=== PATIENT | female | born 1950 | race Caucasian/White ===

== ENCOUNTER 2016-08-28 06:53 | Day surgery (SDC) | payer MEDICARE ==
[2016-08-27 08:58] VITALS: BMI 26.2
[~2016-08-28 06:53] MED LIST: LACTATED RINGERS 1,000 ML IV SCH
[2016-08-28] MEDS ORDERED: LACTATED RINGERS 1,000 ML IV ONE (07:11)
[2016-08-28 07:18] VITALS: TEMP 97.1
[2016-08-28] MEDS ORDERED: ONDANSETRON 4 MG/2 ML VIAL ONE (07:46)
[2016-08-28] MEDS ORDERED: GLYCOPYRROLATE 0.2 MG/ML 2 ML VIAL ONE (07:46)
[2016-08-28] MEDS ORDERED: ATROPINE SULFATE 0.4 MG/ML 1 ML VIAL ONE (07:46)
[2016-08-28] MEDS ORDERED: LIDOCAINE 1% INJ 10MG/ML (20 ML MDV) ONE (07:46)
[2016-08-28] MEDS ORDERED: PROPOFOL 10 MG/ML 20 ML VIAL IV ONE (07:46)
--- NOTE | 2016-08-28 08:23 | P.OP ---
Date of Procedure: 08/28/16 Preoperative Diagnosis: Screening colonoscopy Hypertension Hypercholesterolemia Postoperative Diagnosis: Normal colonoscopy Procedure(s) Performed: Screening colonoscopy without biopsy Anesthesia: MAC Surgeon: Poppy Christensen Pathology: none sent Condition: stable Disposition: PACU Indications for Procedure: 65 years old female presents for screening colonoscopy. Last colonoscopy was 10 years ago. No change in bowel habits. No family history of colon cancer. Informed consent obtained and patient elected to undergo colonoscopy with possible biopsy Operative Findings: Normal colonoscopy Description of Procedure: The patient was brought to the endoscopy suite and placed in lateral decubitus position. IV sedation was given as per anesthesia team. Patient was on continuous vitals and pulse oximetry monitoring throughout the procedure. A timeout was performed to verify correct patient and correct procedure. Perianal examination showed mild circumferential rectal mucosal prolapse and external hemorrhoids. Digital rectal examination was performed. No masses or gross blood. A well-lubricated Olympus colonoscope was passed per rectally and was gradually advanced beyond the sigmoid colon, splenic flexure, transverse colon, hepatic flexure and cecum. The ileocecal valve was visualized as well as the appendiceal orifice . The colonoscope was gradually withdrawn inspecting all the mucosal surfaces. Bowel prep was good. No polyps, masses, AV malformations noted. No diverticulosis. The scope was gradually withdrawn and retroflexed in the rectum . Total withdrawal time was greater than 6 minutes . Patient tolerated the procedure well and was taken to post anesthesia care unit in stable condition. Recommend repeat colonoscopy in 10 years . Patient reported fall in the bathroom yesterday while taking the bowel prep. She denies any headache. Blood pressure and pulse rate stable. CBC and CMP will be checked. Communicated with Sara nurse practitioner at Dr. Nuñez office for follow-up appointment
[2016-08-28 08:29] VITALS: RESP 16
[2016-08-28 09:20] VITALS: BP 115/77; PULSE 73
[2016-08-28 09:24] LABS: Basophils % (A) 0 %; CH 29.9; CHCM 32.9; Eosinophils % (A) 0 %; HDW 2.95; HGB 11.8 gm/dL (11.4-16.0); Luc # (Auto) 0.09; Luc % (Auto) 2; Lymphocytes % (A) 17 %; MCH 30.2 pg (25.0-35.0); MCHC 32.9 g/dL (31.0-37.0); MCV 91.7 fL (80.0-100.0); Mean Platelet Volume 7.1; Monocytes # (A) 0.4 k/uL (0-1.0); Monocytes % (A) 7 %; Neutrophils % (A) 73 %; RBC 3.92 m/uL (3.80-5.40); RDW 14.1 % (11.5-15.5); WBC 5.5 k/uL (3.8-10.6)
[2016-08-28 09:47] LABS: ALT 28 U/L (9-52); AST 24 U/L (14-36); Alkaline Phosphatase 43 U/L (38-126); Anion Gap 10 mmol/L; Blood Urea Nitrogen 14 mg/dL (7-17); Calcium 9.4 mg/dL (8.4-10.2); Carbon Dioxide 27 mmol/L (22-30); Chloride 104 mmol/L (98-107); Glucose 108 mg/dL (74-99); Non-African American GFR(MDRD) >60 (>60 ml/min/1.73 sqM); Potassium 3.8 mmol/L (3.5-5.1); Sodium 141 mmol/L (137-145); Total Bilirubin 0.6 mg/dL (0.2-1.3)
== END 2016-08-28 10:39 | disposition home or self-care (01) ==
LOC: ORWHC2ENDO 06:53
PROVIDERS: ATTEND Surgery
DX: Z12.11 Encounter for screening for malignant neoplasm of colon (principal); I10 Essential (primary) hypertension; E78.00 Pure hypercholesterolemia, unspecified; E78.5 Hyperlipidemia, unspecified; Z79.899 Other long term (current) drug therapy
CPT/HCPCS: 80053; 85025; J0461; J2405; J2001; J2704; G0121

== ENCOUNTER → 2018-08-05 | Outpatient (CLI) | payer MEDICARE ==
--- NOTE | 2018-08-05 10:12 | CT ---
EXAMINATION TYPE: CT heart w calcium score DATE OF EXAM: 08/05/2018 COMPARISON: None HISTORY: Screening for cardiovascular disorder. 213.9 CT DLP: 44.8 mGycm Automated exposure control for dose reduction was used. CT CALCIUM SCORING Coronary calcium is a marker for plaque (fatty deposits) in a blood vessel or atherosclerosis (harden ing of the arteries). The presence and amount of calcium detected in a coronary artery by the CT sca n, indicates the presence and amount of atherosclerotic plaque. These calcium deposits appear years before the development of heart disease symptoms such as chest pain and shortness of breath. A calcium score is computed for each of the coronary arteries based upon the volume and density of th e calcium deposits. This can be referred to as your calcified plaque burden. It does not correspond directly to the percentage of narrowing in the artery but does correlate with the severity of the un derlying coronary atherosclerosis. PROCEDURE TECHNIQUE - Prospective Gating was used. Slice thickness: 3mm. Density threshold (HU): 130, Pixel threshold: 3, Algorithm: discrete. RESULTS Region: LM Calcium Score (Agatston): 0 Volume (mm3): 0 Mass (g): 0 Region: RCA Calcium Score (Agatston): 0 Volume (mm3): 0 Mass (g): 0 Region: LAD Calcium Score (Agatston): 0 Volume (mm3): 0 Mass (g): 0 Region: CX Calcium Score (Agatston): 0 Volume (mm3): 0 Mass (g): 0 Region: PDA Calcium Score (Agatston): 0 Volume (mm3): 0 Mass (g): 0 Total: Calcium Score (Agatston): 0 Volume (mm3): 0 Mass (g): 0 TOTAL CALCIUM SCORE: 0 OTHER: There is a small hiatal hernia seen. Mild degenerative changes of the spine are noted. The vis ualized portion of the lungs are unremarkable. No mediastinal adenopathy and the visualized mediastin um. Ascending thoracic aorta is within normal limits measuring 3.7 cm as is the main pulmonary artery . IMPRESSION: Calcium Score: 0 Implication: No identifiable plaque. Risk of Coronary Artery Disease: Very low, generally less than 5%.
== END | disposition home or self-care (01) ==
LOC: RADCTMAIN 08:42
PROVIDERS: ATTEND Family Medicine
DX: I10 Essential (primary) hypertension (principal); E78.00 Pure hypercholesterolemia, unspecified; Z13.6 Encounter for screening for cardiovascular disorders
CPT/HCPCS: 75571

== ENCOUNTER 2018-11-24 08:14 | Day surgery (SDC) | payer MEDICARE, BC ==
[2018-11-16 16:41] VITALS: BMI 26.5
[~2018-11-24 08:14] MED LIST changes: +LIDOCAINE 1% 20 ML VIAL (10MG/ML) FOR IV START INTRADERMA PRN; +MOXIFLOXACIN HCL 0.5% DROPS 3 ML BTL OP ONE; +TETRACAINE 0.5% OPHTH (PF) DROPS 4 ML BTL OP ONE; +TIMOLOL 0.5% OPHTH DROPS 5 ML BTL OP ONE
[2018-11-24 08:52] VITALS: TEMP 97
[2018-11-24] MEDS: CYCLOPENTOLATE 1% OPHTH SOLN 2 ML BTL OP ONE ×4 (08:53→09:11)
[2018-11-24] MEDS: PHENYLEPHRINE 2.5% OPHTH DRP 2ML OP NR ×3 (08:59→09:11)
[2018-11-24] MEDS ORDERED: LIDOCAINE 1% (PF) 10MG/ML VIAL MISCELLANE ONE (09:27)
[2018-11-24] MEDS ORDERED: BALANCED SALT IRRIG SOLN COMB2 15 ML IRRIG.SOLN IRRIGATION ONE (09:27)
[2018-11-24] MEDS ORDERED: HYALURONATE SODIUM INTRAOCULAR 1 EACH SYRINGE (12MG/ML) INTRAOCULA ONE (09:27)
[2018-11-24] MEDS ORDERED: EPINEPHrine (PF) 0.3 ML in BALANCED SALT IRRIG SOLN COMB2 500 ML IRRIGATION ONE (09:32)
[2018-11-24] MEDS ORDERED: MIDAZOLAM 2 MG/2 ML VIAL ONE (09:32)
[2018-11-24] MEDS ORDERED: fentaNYL (PF) 50 MCG/ML 2 ML AMP ONE (09:32)
--- NOTE | 2018-11-24 09:55 | P.OP ---
Date of Procedure: 11/24/18 Preoperative Diagnosis: NS & CS Postoperative Diagnosis: same Procedure(s) Performed: PIOL, OD Implants: PCB00 7.0 Anesthesia: MAC Surgeon: Calin Tena Pathology: none sent Condition: stable Disposition: same day Indications for Procedure: blurry vision Operative Findings: no complications
[2018-11-24 10:21] VITALS: BP 135/73; PULSE 49; RESP 16
--- NOTE | 2018-11-24 20:08 | OP ---
OPERATIVE REPORT DATE OF SURGERY: 11/24/2018. PROCEDURE: Phacoemulsification of cataract and intraocular lens implant of the right eye. PREOPERATIVE DIAGNOSES: 1. Nuclear sclerosis, right eye. 2. Cortical sclerosis, right eye. POSTOPERATIVE DIAGNOSES: 1. Nuclear sclerosis, right eye. 2. Cortical sclerosis, right eye. NARRATIVE: After obtaining the appropriate consent, the patient was brought to the operating room, where the patient was placed under cardiac monitoring and prepped and draped in the usual sterile manner. At the 11 o'clock position a 15-degree super sharp blade was used to create a paracentesis followed by instillation of 1% Xylocaine MPF 50:50 mix with BSS into the anterior chamber. This was followed by Amvisc to stabilize the anterior chamber. At the 9 o'clock position a self-sealing corneal flap incision was created using 2.8 mm laisha keratome. A cystotome was used to initiate a continuous tear capsulorrhexis which was completed with the Utrata forceps. A Binkhorst cannula was used to hydrodissect the lens nucleus followed by hydrodelineation. Phacoemulsification of the lens was performed utilizing Phaco Chop in 12.10 seconds at 10% power. The remaining cortical material was removed using the irrigation aspiration mode followed by additional 1% Xylocaine MPF into the anterior chamber followed by viscoelastic to stabilize the capsular bag. A Jonathon and Jonathon PCB00 7.0 diopter posterior chamber lens was placed into the capsular bag without difficulty. The remaining viscoelastic material was removed from the anterior chamber with the irrigation/aspiration. Balanced salt solution was used to normalize the intraocular pressure. The incision was checked for watertight integrity. The patient then received two drops of 0.5% timolol followed by two drops Vigamox, was lightly patched and shielded in the usual manner. There were no complications from the procedure. The patient tolerated the procedure well and was returned to Recovery in good condition. MMODL / IJN: [id number] /
== END 2018-11-24 10:38 | disposition home or self-care (01) ==
LOC: OR 08:14
PROVIDERS: ATTEND Ophthalmology
DX: H25.11 Age-related nuclear cataract, right eye (principal); I10 Essential (primary) hypertension; Z79.899 Other long term (current) drug therapy; H18.453 Nodular corneal degeneration, bilateral; H52.223 Regular astigmatism, bilateral; H52.4 Presbyopia; H52.13 Myopia, bilateral; H25.011 Cortical age-related cataract, right eye
CPT/HCPCS: 66984; C1780; J2250; J0171; J3010; J2001

== ENCOUNTER 2018-12-08 08:15 | Day surgery (SDC) | payer MEDICARE, BC ==
[2018-12-03 12:31] VITALS: BMI 26.5
[2018-12-08] MEDS: CYCLOPENTOLATE 1% OPHTH SOLN 2 ML BTL OP ONE ×3 (08:30→08:50)
[2018-12-08] MEDS: PHENYLEPHRINE 2.5% OPHTH DRP 2ML OP NR ×3 (08:32→08:50)
[2018-12-08 08:36] VITALS: RESP 16; TEMP 98
[2018-12-08] MEDS ORDERED: MIDAZOLAM 2 MG/2 ML VIAL ONE (08:52)
[2018-12-08] MEDS ORDERED: fentaNYL (PF) 50 MCG/ML 2 ML AMP ONE (08:52)
[2018-12-08] MEDS ORDERED: GLYCOPYRROLATE 0.2 MG/ML 2 ML VIAL ONE (08:52)
[2018-12-08] MEDS ORDERED: LIDOCAINE 1% (PF) 10MG/ML VIAL SQ ONE (08:57)
[2018-12-08] MEDS ORDERED: BALANCED SALT IRRIG SOLN COMB2 15 ML IRRIG.SOLN IRRIGATION ONE (08:57)
[2018-12-08] MEDS ORDERED: HYALURONATE SODIUM INTRAOCULAR 1 EACH SYRINGE (12MG/ML) INTRAOCULA ONE (08:57)
[2018-12-08] MEDS ORDERED: EPINEPHrine (PF) 0.3 ML in BALANCED SALT IRRIG SOLN COMB2 500 ML IRRIGATION ONE (08:59)
--- NOTE | 2018-12-08 09:25 | P.OP ---
Date of Procedure: 12/08/18 Preoperative Diagnosis: NS & CS Postoperative Diagnosis: NS & CS Procedure(s) Performed: PIOL, OS Implants: PCB00 8.5 Anesthesia: MAC Surgeon: Calin Tena Estimated Blood Loss (ml): 0 Pathology: none sent Condition: stable Disposition: same day Indications for Procedure: blurry vision anisokonia Operative Findings: No complications
[2018-12-08 10:05] VITALS: BP 119/78; PULSE 69
--- NOTE | 2018-12-08 18:25 | OP ---
OPERATIVE REPORT DATE OF SURGERY: 12/08/2018 PROCEDURE: Phacoemulsification of cataract and intraocular lens implant of the left eye. PREOPERATIVE DIAGNOSIS: Nuclear sclerosis and cortical sclerosis, left eye. POSTOPERATIVE DIAGNOSIS: Nuclear sclerosis and cortical sclerosis, left eye. ESTIMATED BLOOD LOSS: Zero. SPECIMEN TAKEN: None. NARRATIVE: After obtaining the appropriate consent, the patient was brought to the operating room, where the patient was placed under cardiac monitoring and prepped and draped in the usual sterile manner. At the 5 o'clock position a 15-degree super sharp blade was used to create a paracentesis followed by instillation of 1% Xylocaine MPF 50:50 mix with BSS into the anterior chamber. This was followed by Amvisc to stabilize the anterior chamber. At the 3 o'clock position a self-sealing corneal flap incision was created using 2.8 mm laisha keratome. A cystotome was used to initiate a continuous tear capsulorrhexis which was completed with the Utrata forceps. A Binkhorst cannula was used to hydrodissect the lens nucleus followed by hydrodelineation. Phacoemulsification of the lens was performed utilizing Phacochop in 8.93 seconds at 10% power. The remaining cortical material was removed using the irrigation aspiration mode followed by additional 1% Xylocaine MPF into the anterior chamber followed by Amvisc to stabilize the capsular bag. A Jonathon and Jonathon model PCB 00 8.5 diopter posterior chamber lens was placed into the capsular bag without difficulty. The remaining Amvisc material was removed from the anterior chamber with the irrigation/aspiration. Balanced salt solution was used to normalize the intraocular pressure. The incision was checked for watertight integrity. The patient then received two drops of 0.5% timolol followed by two drops Vigamox, was lightly patched and shielded in the usual manner. There were no complications from the procedure. The patient tolerated the procedure well and was returned to recovery in good condition. MMODL / IJN: [id number] /
== END 2018-12-08 10:03 | disposition home or self-care (01) ==
LOC: OR 08:15
PROVIDERS: ATTEND Ophthalmology
DX: H25.12 Age-related nuclear cataract, left eye (principal); H52.32 Aniseikonia; H00.023 Hordeolum internum right eye, unspecified eyelid; H00.026 Hordeolum internum left eye, unspecified eyelid; H18.453 Nodular corneal degeneration, bilateral; H04.129 Dry eye syndrome of unspecified lacrimal gland; H11.003 Unspecified pterygium of eye, bilateral; H52.223 Regular astigmatism, bilateral; H52.4 Presbyopia; H52.13 Myopia, bilateral; Z96.1 Presence of intraocular lens; I10 Essential (primary) hypertension; E78.5 Hyperlipidemia, unspecified; Z90.710 Acquired absence of both cervix and uterus; Z79.899 Other long term (current) drug therapy; M19.90 Unspecified osteoarthritis, unspecified site; Z91.09 Other allergy status, other than to drugs and biological substances; Z82.61 Family history of arthritis; Z83.3 Family history of diabetes mellitus; Z82.49 Family history of ischemic heart disease and other diseases of the circulatory system; Z88.2 Allergy status to sulfonamides
CPT/HCPCS: 66984; C1780; J2250; J0171; J3010; J2001

== ENCOUNTER → 2020-01-03 | Outpatient (CLI) | payer MEDICARE, BC ==
--- NOTE | 2020-01-03 12:02 | BD ---
EXAMINATION TYPE: Axial Bone Density DATE OF EXAM: 01/03/2020 COMPARISON: NONE CLINICAL HISTORY: Height: 60.2 IN Weight: 142 LBS RISK FACTORS HISTORY OF: Family History of Osteoporosis: YES MOTHER Active: YES Postmenopausal woman: PARTIAL HYST AGE 50 Take estrogen and/or progesterone medications: NOT NOW How long: AGE 51-56 MEDICATIONS: Osteoporosis Medications: NOT NOW Which medication: Actonel PROLIA INJ How Lon YEARS Additional Medications: CALCIUM ., VIT D, WATER PILL, SIMVASTATIN, RESTASIS EXAM MEASUREMENTS: Bone mineral densitometry was performed using the [employer] System. Bone mineral density as measured about the Lumbar spine is: ----- L1-L4(G/cm2): 0.973 T Score Values are as follows: ----- L2: -2.3 ----- L3: -1.7 ----- L4: -1.8 ----- L1-L4: -1.7 Bone mineral density BASELINE Bone mineral density about the R hip (g/cm2): 0.899 Bone mineral density about the L hip (g/cm2): 0.862 T Score values are as follows: -----R Neck: -1.0 -----L Neck: -1.3 -----R Total: -0.8 -----L Total: -0.6 Bone mineral BASELINE IMPRESSION: Osteopenia (T Score between -2.5 and -1). There is slightly increased risk of fracture and the patient may be considered for treatment. Re-Screen 2-5 years. NOTE: T-SCORE=SD OF THE YOUNG ADULT MEAN.
--- NOTE | 2020-01-03 13:23 | MM ---
Reason for exam: screening (asymptomatic). Last mammogram was performed 1 year and 3 months ago. History: Patient is postmenopausal. Physical Findings: A clinical breast exam by your physician is recommended on an annual basis and results should be correlated with mammographic findings. MG 3D Screening Mammo W/Cad Bilateral CC and MLO view(s) were taken. Prior study comparison: September 21, 2018, mammogram, performed at [place]. September 15, 2017, mammogram, performed at [place]. The breast tissue is heterogeneously dense. This may lower the sensitivity of mammography. There are benign appearing round calcifications bilaterally. There is no discrete abnormality. ASSESSMENT: Benign, BI-RAD 2 RECOMMENDATION: Routine screening mammogram of both breasts in 1 year.
== END | disposition home or self-care (01) ==
LOC: RADMAMWWP 10:24
PROVIDERS: ATTEND Obstetrics & Gynecology
DX: Z12.31 Encounter for screening mammogram for malignant neoplasm of breast (principal); M85.80 Other specified disorders of bone density and structure, unspecified site
CPT/HCPCS: 77063; 77067; 77080

== ENCOUNTER → 2021-01-15 | Outpatient (CLI) | payer MEDICARE, BC ==
--- NOTE | 2021-01-16 13:34 | MM ---
Reason for exam: screening (asymptomatic). Last mammogram was performed 1 year ago. History: Patient is postmenopausal. Physical Findings: A clinical breast exam by your physician is recommended on an annual basis and results should be correlated with mammographic findings. MG 3D Screening Mammo W/Cad Bilateral CC and MLO view(s) were taken. Prior study comparison: January 03, 2020, bilateral MG 3d screening mammo w/cad. September 21, 2018, mammogram, performed at [place]. The breast tissue is heterogeneously dense. This may lower the sensitivity of mammography. Stable benign calcifications. There is no discrete abnormality. No significant changes when compared with prior studies. ASSESSMENT: Benign, BI-RAD 2 RECOMMENDATION: Routine screening mammogram of both breasts in 1 year.
== END | disposition home or self-care (01) ==
LOC: RADMAMWWP 09:24
PROVIDERS: ATTEND Obstetrics & Gynecology
DX: Z12.31 Encounter for screening mammogram for malignant neoplasm of breast (principal)
CPT/HCPCS: 77063; 77067

== ENCOUNTER → 2022-02-26 | Outpatient (CLI) | payer MEDICARE, BC ==
--- NOTE | 2022-02-27 08:29 | MM ---
Reason for Exam: Screening (asymptomatic). Last mammogram was performed 1 year(s) and 2 month(s) ago. Patient History: Menarche at age 11. First Full-Term at age 25. Hysterectomy at age 59. Postmenopausal. Patient has history of breast feeding. Risk Values: Adelina 5 year model risk: 2.0%. NCI Lifetime model risk: 5.1%. Prior Study Comparison: 09/21/2018 Screening Mammogram, [facility]. 01/03/2020 Bilateral Screening Mammogram, [facility]. 01/15/2021 Bilateral Screening Mammogram, [facility]. Tissue Density: The breast tissue is heterogeneously dense. This may lower the sensitivity of mammography. Findings: Analyzed By CAD. There is no suspicious group of microcalcifications or new suspicious mass in either breast. Stable benign calcifications. No significant change from prior exams. Overall Assessment: Benign, BI-RAD 2 Management: Screening Mammogram of both breasts in 1 year. A clinical breast exam by your physician is recommended on an annual basis and results should be correlated with mammographic findings. Electronically signed and approved by: Josué Goldman D.O.
== END | disposition home or self-care (01) ==
LOC: RADBDWWP 11:01
PROVIDERS: ATTEND Obstetrics & Gynecology
DX: Z12.31 Encounter for screening mammogram for malignant neoplasm of breast (principal); Z78.0 Asymptomatic menopausal state
CPT/HCPCS: 77063; 77067

== ENCOUNTER → 2022-03-27 | Outpatient (CLI) | payer MEDICARE, BC ==
--- NOTE | 2022-03-27 13:02 | BD ---
EXAMINATION TYPE: Axial Bone Density DATE OF EXAM: 03/27/2022 COMPARISON: NONE CLINICAL HISTORY: 71 year old Female. ICD-10 CODE: M85.88 OSTEOPENIA Height: 61 Weight: 137.2 FRAX RISK QUESTIONS: Alcohol (3 or more units per day): no Family History (Parent hip fracture): no Glucocorticoids (More than 3mos): no (Ex: prednisone, prednisolone, methylprednisolone, dexamethasone, and hydrocortisone). History of Fracture in Adulthood: no Secondary Osteoporosis: 1. Type 1 Diabetes: no 2. Hyperthyroidism: no 3. Menopause before 45: no 4. Malnutrition: no 5. Chronic liver disease: no Rheumatoid Arthritis: no Current Tobacco Use: no RISK FACTORS HISTORY OF: Surgery to Spine/Hip(right/left)/Wrist (right/left): no Family History of Osteoporosis: yes Active: yes Diet low in dairy products/other sources of calcium: no Postmenopausal woman: yes Lost more than 2 inches in height since high school: no MEDICATIONS: Additional History: EXAM MEASUREMENTS: Bone mineral densitometry was performed using the [employer] System. Bone mineral density as measured about the Lumbar spine is: ----- L1-L4(G/cm2): 0.905 T Score Values are as follows: ----- L1: -2.0 ----- L2: -2.5 ----- L3: -2.3 ----- L4: -2.5 ----- L1-L4: -2.3 Bone mineral density has: decreased -6.6 % since study of: 01.03.2020 Bone mineral density about the R hip (g/cm2): 0.866 Bone mineral density about the L hip (g/cm2): 0.830 T Score values are as follows: -----R Neck: -1.2 -----L Neck: -1.5 -----R Total: -1.0 -----L Total: -1.1 Bone mineral density has: decreased -4.9 % since study of: 01.03.2020 FRAX%s: The graph provided illustrates a 10.7% chance for a major osteoporotic fx and a 1.8% chance f or the hips probability for fx in 10 years time. IMPRESSION: Osteopenia (T Score between -2.5 and -1). There is slightly increased risk of fracture and the patient may be considered for treatment. Re-Screen 2-5 years. NOTE: T-SCORE=SD OF THE YOUNG ADULT MEAN.
== END | disposition home or self-care (01) ==
LOC: RADBDWWP 08:28
PROVIDERS: ATTEND Obstetrics & Gynecology
DX: M85.89 Other specified disorders of bone density and structure, multiple sites (principal)
CPT/HCPCS: 77080

== ENCOUNTER → 2024-03-29 | Outpatient (CLI) | payer MEDICARE, BC ==
[2024-03-29 08:55] VITALS: BP 149/85; PULSE 74; RESP 17; TEMP 98.3
--- NOTE | 2024-03-29 11:53 | P.HPOB ---
History of Present Illness H&P Date: 03/29/24 Chief Complaint: The patient is here for her routine gynecologic exam and ma mmogram. Patient is a 73-year-old -0-1-3 with an LMP prior to 2009. Patient is here to establish with this office. It has been about 1 year since her last pelvic exam. She previously saw Dr. Bernal for her gynecologic care. She is status post vaginal hysterectomy for prolapse. She is without gynecologic complaints. Review of Systems The patient's weight has been stable over the last year. She denies respiratory, cardiac, or G.I. problems. Past Medical History Past Medical History: Eye Disorder, Hyperlipidemia, Hypertension, Osteoarthritis (OA) Additional Past Medical History / Comment(s): LT CATARACTS. Chronic dry eye syndrome. Pseudo gout. 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 History of Any Multi-Drug Resistant Organisms: None Reported Past Surgical History: Hysterectomy Additional Past Surgical History / Comment(s): Vaginal hysterectomy with anterior repair 2009. COLONOSCOPY 2016(next after 10yr), GANGLION CYST REMOVED RT WRIST 2016, CATARACT RT EYE REMOVED. Varicose vein injections in the legs. Past Anesthesia/Blood Transfusion Reactions: Postoperative Nausea & Vomiting (PONV) Past Psychological History: No Psychological Hx Reported Smoking Status: Never smoker, Second hand smoke exposure Past Alcohol Use History: Occasional (2 or 3 drinks per month.) Past Drug Use History: None Reported Additional History: She has been since 1971. 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 - Past Family History Mother Family Medical History: Hypertension Additional Family Medical History / Comment(s): Osteoporosis and Parkinson's disease. . Father Family Medical History: Diabetes Mellitus, Deep Vein Thrombosis (DVT) Additional Family Medical History / Comment(s): Anorexia. . Medications and Allergies Home Medications Medication Instructions Recorded Confirmed Type Citracal 1200 1,200 mg PO DAILY 08/27/16 03/29/24 History Simvastatin [Zocor] 20 mg PO HS 08/27/16 03/29/24 History cycloSPORINE [Restasis] 1 applicator BOTH EYES BID 08/27/16 03/29/24 History hydroCHLOROthiazide [Hydrodiuril] 25 mg PO DAILY 08/27/16 03/29/24 History Colchicine 0.6 mg PO DAILY 03/29/24 03/29/24 History Varenicline Tartrate [Tyrvaya] 1 spray NASAL DAILY 03/29/24 03/29/24 History Allergies Allergy/AdvReac Type Severity Reaction Status Date / Time sulfamethoxazole Allergy Rash/Hives Verified 03/29/24 08:49 [From Bactrim] trimethoprim [From Bactrim] Allergy Rash/Hives Verified 03/29/24 08:49 Exam Vital Signs Temp Pulse Resp BP Pulse Ox 03/29/24 08:50 98.3 F 74 17 149/85 96 Intake and Output 03/28/24 03/29/24 03/29/24 22:59 06:59 14:59 Other: Weight 63.957 kg Height 5 foot 1 inch, weight 141 pounds, BMI 26.6. This is a well-developed well-nourished white female who is alert and oriented times 3 in no acute distress. HEENT: Within normal limits. NECK: Supple without mass or thyromegaly. CHEST AND LUNGS: Clear to auscultation. HEART: Regular rate and rhythm. BREASTS: Are without mass or discharge. AXILLARY EXAM: Negative for adenopathy. BACK: Negative for CVA tenderness. ABDOMEN: Soft, nontender, without palpable masses. PELVIC EXAM: External genitalia appears normal with mild atrophy. Vagina appears normal with mild atrophy. There is no evidence of prolapse. Bimanual examination is negative for mass or tenderness. RECTAL EXAM: Rectovaginal exam is negative for mass or tenderness and is negative for occult blood. EXTREMITIES: Nontender. IMPRESSION: 1. 73-year-old menopausal female status post vaginal hysterectomy with anterior repair for benign reasons, with normal gynecologic exam. 2. History of osteopenia. PLAN: 1. Pap smears have been discontinued. 2. Self breast awareness was discussed with the patient. We have also discussed symptoms associated with inflammatory breast cancer. 3. Screening mammogram will be done today. 4. Osteoporosis prevention was discussed. I have stressed the importance of adequate calcium, vitamin D and regular exercise. Recommended amounts of calcium and vitamin D were also discussed. She will be having a bone density test done today. 5. She states she has had records from Dr. Bernal's office sent here. I will see if we can locate these records and review them. 6. She was advised to return in one year for her annual well woman exam.
== END ==
LOC: WWCWWP 08:35
PROVIDERS: ATTEND Obstetrics & Gynecology
DX: Z12.31 Encounter for screening mammogram for malignant neoplasm of breast (principal); M85.80 Other specified disorders of bone density and structure, unspecified site; Z78.0 Asymptomatic menopausal state; Z88.1 Allergy status to other antibiotic agents; Z88.2 Allergy status to sulfonamides; Z90.710 Acquired absence of both cervix and uterus
CPT/HCPCS: 77063; 77067; 77080